=== PATIENT | female | born 1970 | race Caucasian/White ===

== ENCOUNTER 2020-05-16 12:46 | Emergency (ER) | payer OTHER ==
--- NOTE | 2020-05-16 13:13 | TELE ---
HPI Do you have fever,cough or shortness of breath?: Yes - General Reason For Visit: COVID19 Time Seen by Provider: 05/16/20 13:09 History Source: Patient Exam Limitations: Clinical Condition - History of Present Illness Timing/Duration: unsure Associated Symptoms: reports: malaise. denies: cough, fever/chills, headaches, shortness of breath 05/16/20 13:09 Patient with no significant past medical history presenting to [facility] urgent care for COVID testing status post having nasal congestion, runny nose and sinus congestion. Patient reported living with a diabetic son and wants to make sure she does not have COVID. Denies fever, chills, cough, shortness of breath, chest pain. Denies any other symptoms. Denies sick contacts or recent travel Review of Systems - Review of Systems Able to Perform ROS?: Yes Limited Kazakh proficient: No Constitutional: No: Chills, Fever, Malaise HEENTM: Yes: Symptoms Reported, See HPI, Nose Congestion. No: Eye Pain, Blurred Vision, Tearing, Recent change in vision, Double Vision, Cataracts, Ear Pain, Ocular Prothesis, Ear Discharge, Nose Pain, Tinnitus, Nose Bleeding, Hearing Loss, Throat Pain, Throat Swelling, Mouth Pain, Dental Problems, Difficulty Swallowing, Mouth Swelling, Other Respiratory: No: Symptoms reported, See HPI, Cough, Orthopnea, Shortness of Breath, SOB with Exertion, SOB at Rest, Stridor, Wheezing, Productive cough, Hemoptysis, Other Cardiac (ROS): No: Symptoms Reported, See HPI, Chest Pain, Edema, Irregular Heart Rate, Lightheadedness, Palpitations, Syncope, Chest Tightness, Other ABD/GI: No: Symptoms Reported, Nausea, Vomiting Musculoskeletal: No: Symptoms Reported Integumentary: No: Symptoms Reported All Other Systems: Reviewed and Negative *Physical Exam - Physical Exam General Appearance: Yes: Nourished, Appropriately Dressed. No: Apparent Distress HEENT: positive: Normal ENT Inspection Respiratory/Chest: negative: Respiratory Distress, Accessory Muscle Use Musculoskeletal: positive: Normal Inspection Extremity: positive: Normal Inspection, Normal Range of Motion Integumentary: positive: Normal Color Neurologic: positive: Fully Oriented, Alert, Normal Mood/Affect, Normal Response, Motor Strength /5 - Medical Decision Making 05/16/20 13:10 Patient with no significant past medical history presenting to [facility] urgent care for COVID testing status post having nasal congestion, runny nose and sinus congestion. Patient reported living with a diabetic son and wants to make sure she does not have COVID. Denies fever, chills, cough, shortness of breath, chest pain. Denies any other symptoms. Denies sick contacts or recent travel Patient afebrile at this time with no acute symptoms at this time on exam. COVID testing ordered as per patient request. Patient educated on self quarantine instructions after negative COVID results. Patient to go to [facility] COVID testing center today for testing. Patient stable for discharge Discharge Diagnosis at time of Disposition: Encounter by telehealth for suspected COVID-19 - Referrals Follow-up Referral(s): Ignacio Arellano MD [Primary Care Provider] - - Patient Instructions Discharge Instructions: [facility] Instructions, [facility] COVID-19 Isolation Protocol - Discharge Disposition: HOME Condition at time of Disposition: Stable
== END 2020-05-16 13:13 | disposition home or self-care (01) ==
LOC: JVIRT 12:46
DX: Z11.59 Encounter for screening for other viral diseases (principal)
CPT/HCPCS: Q3014-GT; U0003

== ENCOUNTER 2020-06-17 10:43 | Emergency (ER) | payer OTHER ==
--- NOTE | 2020-06-17 11:16 | TELE ---
HPI Do you have fever,cough or shortness of breath?: No - General Reason For Visit: COVID 19 TEST History Source: Patient Exam Limitations: No Limitations - History of Present Illness 06/17/20 11:13 50 year old female requesting COVID testing for travel. Denies all symptoms. *Physical Exam - Physical Exam 06/17/20 11:14 A&Ox3 NAD Benign physical exam via videochat - Medical Decision Making 06/17/20 11:15 Pt to precede to [facility] for covid 19 testing. Isolation precautions given Discharge Diagnosis at time of Disposition: COVID-19 - Referrals - Patient Instructions Discharge Instructions: [facility]on[facility] Instructions - Discharge Disposition: HOME Condition at time of Disposition: Stable
== END 2020-06-17 11:17 | disposition home or self-care (01) ==
LOC: JVIRT 10:43
DX: Z03.818 Encounter for observation for suspected exposure to other biological agents ruled out (principal)
CPT/HCPCS: C9803; Q3014-GT; U0003

== ENCOUNTER 2020-07-25 16:04 | Emergency (ER) | payer OTHER | END 2020-07-25 16:43 | disposition home or self-care (01) | LOC: JVIRT 16:04 | DX: Z03.818 Encounter for observation for suspected exposure to other biological agents ruled out (principal) | CPT/HCPCS: C9803; Q3014-GT; U0003 ==